=== PATIENT | male | born 1990 | race Caucasian/White ===

== ENCOUNTER 2016-10-01 21:01 | Emergency (ER) | payer OTHER ==
[2016-10-02 02:36] LABS: HEMOGLOBIN 13.8 gm/dl (14.0-17.5); RED BLOOD COUNT 4.68 M/UL (4.20-5.50); WHITE BLOOD COUNT 12.1 K/UL (4.5-11.0)
[2016-10-02 02:53] LABS: BUN/CREATININE RATIO 14 (0-10)
== END 2016-10-02 05:17 | disposition home or self-care (01) ==
LOC: ER1 21:01
PROVIDERS: Emergency Medicine
DX: N13.2 Hydronephrosis with renal and ureteral calculous obstruction (principal)
CPT/HCPCS: 36415; 80053; 81001; 83690; 85025; 96361; 96374; 96375; 99284; J1885; J2270; J2405

== ENCOUNTER 2016-10-02 21:18 | Emergency (ER) | payer OTHER ==
[2016-10-02 22:14] LABS: HEMOGLOBIN 13.1 gm/dl (14.0-17.5); RED BLOOD COUNT 4.47 M/UL (4.20-5.50); WHITE BLOOD COUNT 11.5 K/UL (4.5-11.0)
[2016-10-02 22:34] LABS: BUN/CREATININE RATIO 10 (0-10)
== END 2016-10-03 00:22 | disposition home or self-care (01) ==
LOC: ER1 21:18
PROVIDERS: Emergency Medicine
DX: N20.0 Calculus of kidney (principal); R94.4 Abnormal results of kidney function studies
CPT/HCPCS: 36415; 80053; 81001; 85025; 96374; 96375; 99284; J2270; J2405